=== PATIENT | female | born 1985 | race Caucasian/White ===

== ENCOUNTER 2021-05-15 15:55 | Emergency (ER) | payer OTHER ==
[2021-05-15 16:08] VITALS: BP 137/77; PULSE 87; RESP 16; TEMP 98.7
--- NOTE | 2021-05-15 17:08 | ED ---
General Adult HPI - General Chief complaint: Recheck/Abnormal Lab/Rx Stated complaint: Allergic reaction Source: patient Mode of arrival: ambulatory Limitations: no limitations - History of Present Illness Initial comments: 32 year old female presents emergency Department with reported reaction to hair dye. Patient states that she got her hair dyed on April 26 in a salon in [place]. Slowly afterward she began developing blistering to her scalp with drainage. States that the wounds have now extended down onto her neck and involved the tops of her ears which is extremely painful. She has been using head and shoulders shampoo and applying triple antibiotic ointment. No history of similar response in the past but she normally uses box dye. States they had to bleach her hair. Denies any fevers. No concern for . Denies any known ALLERGIES. No other alleviating, precipitating or modifying factors - Related Data Previous Rx's Medication Instructions Recorded Ciprofloxacin HCl [Cipro] 750 mg PO Q12H 1 Days #14 tab 05/15/21 Triamcinolone 0.1% Cream [Kenalog 1 applicatio TOPICAL BID #30 gm 05/15/21 0.1% Cream] Allergies Allergy/AdvReac Type Severity Reaction Status Date / Time No Known Allergies Allergy Verified 05/15/21 16:04 Review of Systems ROS Statement: Those systems with pertinent positive or pertinent negative responses have been documented in the HPI. ROS Other: All systems not noted in ROS Statement are negative. 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 History of Any Multi-Drug Resistant Organisms: None Reported Past Surgical History: Section Additional Past Surgical History / Comment(s): Leg bowing correction surgery Past Psychological History: No Psychological Hx Reported Smoking Status: Never smoker Past Alcohol Use History: Occasional Past Drug Use History: None Reported General Exam Limitations: no limitations Course Vital Signs 05/15/21 16:04 Temperature 98.7 F Pulse Rate 87 Respiratory 16 Rate Blood Pressure 137/77 O2 Sat by Pulse 96 Oximetry Medical Decision Making - Medical Decision Making Upon arrival patient placed in the [facility]. There are exam is performed. 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 Patient also given a prescription for Kenalog cream. Instructed to not use on the face. Recommend using Selsun Blue on the scalp. Follow up with her primary care doctor for continued evaluation. Instructed not to further by her hair until symptoms improve. Return to the emergency room for any worsening symptoms. 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 Take the antibiotic as directed. you the steroid cream to the most affected areas. Use Selsun blue/head and shoulders shampoo. Return to the ED if your symptoms dont improve. Prescriptions: Ciprofloxacin HCl [Cipro] 750 mg PO Q12H 1 Days #14 tab Triamcinolone 0.1% Cream [Kenalog 0.1% Cream] 1 applicatio TOPICAL BID #30 gm Is patient prescribed a controlled substance at d/c from ED?: No Referrals: None,Stated [Primary Care Provider] - 1-2 days Time of Disposition: 17:08
== END 2021-05-15 17:37 | disposition home or self-care (01) ==
LOC: EC 15:55
DX: T20.65XA Corrosion of second degree of scalp [any part], initial encounter (principal); H61.003 Unspecified perichondritis of external ear, bilateral; H61.033 Chondritis of external ear, bilateral; J45.909 Unspecified asthma, uncomplicated
CPT/HCPCS: 99283

== ENCOUNTER 2021-07-03 19:27 | Emergency (ER) | payer OTHER ==
[2021-07-03] MEDS ORDERED: ACETAMINOPHEN TAB 500 MG TAB PO STA (20:55)
--- NOTE | 2021-07-03 20:56 | ED ---
General Adult HPI - General Chief complaint: Skin/Abscess/Foreign Body Stated complaint: Allergic Reaction Time Seen by Provider: 07/03/21 20:20 Source: patient Mode of arrival: ambulatory Limitations: no limitations - History of Present Illness Initial comments: Dictation was produced using [employer] dictation software. please excuse any grammatical, word or spelling errors. Chief Complaint: 36-year-old female past medical history of dwarfism, asthma presents to the ER for rash, sore throat and URI symptoms History of Present Illness: 36-year-old female past medical history of dwarfism and asthma presents to emergency department for 2-3 days of sore throat, nasal congestion, rhinorrhea dry cough. Patient states she's been symptomatic for 2-3 days. Over the last 24 hours she developed a maculopapular rash. Still had this rash before. She reports that her symptoms are typical when she is coming down with a cold. No obvious sick contacts. She is worried that she caught something from her daughter. She denies any fever or constitutional symptoms. No shortness of breath. She states she has some mild sore throat. States it milder than when she's had strep throat in the past. The ROS documented in this emergency department record has been reviewed and confirmed by me. Those systems with pertinent positive or negative responses have been documented in the HPI. All other systems are other negative and/or noncontributory. PHYSICAL EXAM: General Impression: Alert and oriented x3, not in acute distress HEENT: Normocephalic atraumatic, extra-ocular movements intact, pupils equal and reactive to light bilaterally, mucous membranes moist, mild posterior oropharyngeal erythema with positive exudates and tonsillar swelling, no uvular deviation Cardiovascular: Heart regular rate and rhythm Chest: Able to complete full sentences, no retractions, no tachypnea Abdomen: abdomen soft, non-tender, non-distended, no organomegaly Musculoskeletal: Pulses present and equal in all extremities, no peripheral edema Motor: no focal deficits noted Neurological: CN II-XII grossly intact, no focal motor or sensory deficits noted Skin: Maculopapular rash to the proximal thighs, anterior abdomen, left antecubital area and back Psych: Normal affect and mood ED course: 36-year-old female presents emergency department for URI symptoms and rash. Vital signs upon arrival shows denture 11.1, worse vital signs within acceptable limits. Patient denies . She states she has an implant and has not had any sexual activity in several months. Patient is chronically is positive. Urine hCG is negative. Group strep is negative. Influenza and RSV also negative. Chest x-ray is nonacute. Patient has history of asthma and elevated BMI. Patient meets criteria for [facility] antibody infusion. Patient is agreeable. Patient be observed in emergency department after the infusion and discharge. - Related Data Home Medications Medication Instructions Recorded Confirmed Loratadine [Claritin] 10 mg PO HS 07/03/21 07/03/21 Omeprazole 20 mg PO HS 07/03/21 07/03/21 Allergies Allergy/AdvReac Type Severity Reaction Status Date / Time nortriptyline Allergy Unknown Verified 07/03/21 19:56 Review of Systems ROS Statement: Those systems with pertinent positive or pertinent negative responses have been documented in the HPI. ROS Other: All systems not noted in ROS Statement are negative. 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 History of Any Multi-Drug Resistant Organisms: None Reported Past Surgical History: Section Additional Past Surgical History / Comment(s): Leg bowing correction surgery Past Psychological History: No Psychological Hx Reported Smoking Status: Never smoker Past Alcohol Use History: Occasional Past Drug Use History: None Reported General Exam Limitations: no limitations Course Vital Signs 07/03/21 07/03/21 19:51 21:34 Temperature 101.1 F H 99.3 F Pulse Rate 99 106 H Respiratory 22 18 Rate Blood Pressure 151/87 125/58 O2 Sat by Pulse 100 99 Oximetry Medical Decision Making - Lab Data Lab Results 07/03/21 07/03/21 07/03/21 Range/Units 20:32 20:32 20:32 Urine HCG, Qual Not Detected (Not Detectd) Influenza Type A (PCR) Not Detected (Not Detectd) Influenza Type B (PCR) Not Detected (Not Detectd) RSV (PCR) Not Detected (Not Detectd) SARS-CoV-2 (PCR) Detected A (Not Detectd) Group A Strep Rapid Negative (Negative) Disposition Clinical Impression: COVID-19, Rash associated with COVID-19 Disposition: HOME SELF-CARE Condition: Good Instructions (If sedation given, give patient instructions): Coronavirus Disease 2019 (COVID-19) Is patient prescribed a controlled substance at d/c from ED?: No Referrals: None,Stated [Primary Care Provider] - 1-2 days
--- NOTE | 2021-07-03 21:43 | XR ---
EXAMINATION TYPE: XR chest 1V portable DATE OF EXAM: 07/03/2021 CLINICAL HISTORY: uri. TECHNIQUE: Portable frontal view of the chest. COMPARISON: None FINDINGS: The cardiomediastinal silhouette is within normal limits for size. Pulmonary vasculature i s normal. There is no focal air space opacity. No pleural effusion. No pneumothorax seen. No acute d isplaced osseous fracture. IMPRESSION: No acute cardiopulmonary process.
[2021-07-03] MEDS ORDERED: BAMLANIVIMAB (EUA) 700 MG, ETESEVIMAB (EUA) 1,400 MG in SODIUM CHLORIDE 0.9% 50 ML IVPB ONE (22:45)
[2021-07-03] MEDS ORDERED: SODIUM CHLORIDE 0.9% 50 ML IVPB ONE (22:45)
[2021-07-04 00:34] VITALS: BP 122/63; PULSE 88; RESP 16; TEMP 99
== END 2021-07-04 00:34 | disposition home or self-care (01) ==
LOC: EC 19:27
DX: U07.1 COVID-19 (principal); R21 Rash and other nonspecific skin eruption; J45.909 Unspecified asthma, uncomplicated; Z72.89 Other problems related to lifestyle
CPT/HCPCS: 99283; 96365; 81025; 87081; 87430; 87636; 71045; J3490

== ENCOUNTER → 2023-01-08 | Outpatient (CLI) | payer BC ==
[2023-01-08 15:13] LABS: Basophils # (A) 0.05 X 10*3/uL (0.00-0.10); Basophils % (A) 0.7 %; Eosinophils # (A) 0.13 X 10*3/uL (0.04-0.35); Eosinophils % (A) 1.8 %; HCT 46.9 % (37.2-46.3); HGB 14.8 g/dL (12.0-15.0); Immature Grans, Automated 0.3 %; Lymphocytes # (A) 3.28 X 10*3/uL (0.90-5.00); Lymphocytes % (A) 45.1 %; MCH 27.6 pg (27.0-32.0); MCHC 31.6 g/dL (32.0-37.0); MCV 87.3 fL (80.0-97.0); Mean Platelet Volume 12.1 fL (9.5-12.2); Monocytes # (A) 0.46 X 10*3/uL (0.20-1.00); Monocytes % (A) 6.3 %; NRBC Per 100 WBC 0 /100 WBCS (0.0-0.0); Neutrophils # (A) 3.34 X 10*3/uL (1.80-7.70); Neutrophils % (A) 45.8 %; Platelet Count 231 X 10*3/uL (140-440); RBC 5.37 X 10*6/uL (4.10-5.20); RDW 13.5 % (11.5-14.5); WBC 7.28 X 10*3/uL (4.50-10.00)
[2023-01-08 16:24] LABS: ALT 19 U/L (8-44); AST 19 U/L (13-35); African American GFR (CKD) 138.2 (60.0-200.0); Albumin 4.6 g/dL (3.8-4.9); Albumin/Globulin Ratio 1.61 (1.60-3.17); Alkaline Phosphatase 72 U/L (41-126); BUN/Creat Ratio 22.81 Ratio (12.00-20.00); Blood Urea Nitrogen 13.3 mg/dL (9.0-27.0); Calcium 9.5 mg/dL (8.7-10.3); Carbon Dioxide 22.1 mmol/L (20.0-27.5); Chloride 104 mmol/L (96-109); Chol/HDL Ratio 3.34 Ratio; Follicle Stimulating Hormone 4.9 mIU/mL; Globulin 2.8 g/dL (1.6-3.3); Glucose 83 mg/dL (70-110); LDL Cholesterol,Calculated 97.5 mg/dL (0.0-131.0); Luteinizing Hormone 2.9 mIU/mL; Non-African American GFR(CKD) 119.2 (60.0-200.0); Potassium 4.2 mmol/L (3.5-5.5); Sodium 140 mmol/L (135-145); Total Protein 7.4 g/dL (6.2-8.2); VLDL Calculation 17.42 mg/dL (5.00-40.00)
== END | disposition home or self-care (01) ==
LOC: LABWHC1 09:29
PROVIDERS: ATTEND Internal Medicine
DX: Z00.01 Encounter for general adult medical examination with abnormal findings (principal); Z13.220 Encounter for screening for lipoid disorders; N97.0 Female infertility associated with anovulation
CPT/HCPCS: 36415; 80053; 80061; 83001; 83002; 85025